=== PATIENT | female | born 1980 | race Caucasian/White ===

== ENCOUNTER 2017-05-31 07:06 | Day surgery (SDC) | payer BC, OTHER ==
[2017-05-31] MEDS: NS 1,000 ML IV (07:25)
[2017-05-31] MEDS ORDERED: PROPOFOL 200 MG/20 ML VIAL As Ordered (08:32)
[2017-05-31] MEDS ORDERED: LIDOCAINE 2% INJ 100 MG/5 ML SDV (FOR ANES.) As Ordered (08:32)
== END 2017-05-31 09:14 | disposition home or self-care (01) ==
LOC: M OPP 07:06
DX: K21.9 Gastro-esophageal reflux disease without esophagitis (principal); K29.70 Gastritis, unspecified, without bleeding; K29.80 Duodenitis without bleeding; R12 Heartburn; D64.9 Anemia, unspecified; G43.909 Migraine, unspecified, not intractable, without status migrainosus; R21 Rash and other nonspecific skin eruption; Z86.19 Personal history of other infectious and parasitic diseases; Z88.8 Allergy status to other drugs, medicaments and biological substances; Z91.02 Food additives allergy status; Z79.899 Other long term (current) drug therapy; Z80.3 Family history of malignant neoplasm of breast
CPT/HCPCS: 43239

== ENCOUNTER 2018-06-09 07:20 | Day surgery (SDC) | payer BC, OTHER ==
[~2018-06-09] VITALS: Ht 165.1 cm; Wt 79.4 kg
[~2018-06-09 07:20] MED LIST: ASHL1TAB PO; IBUP-1114 PO; LIDOCAINE 2% INJ 100 MG/5 ML SDV (FOR ANES.) As Ordered ONE; MAPA500T2 PO; NS 1,000 ML IV ONE; PANT40TA3 PO; PRENTAB55 PO; PROPOFOL 200 MG/20 ML VIAL As Ordered ONE
--- NOTE | 2018-06-09 08:33 | ROOR ---
Patient Name: Opal Blair Procedure Date: 06/09/2018 8:06 AM Date of : 1980 Age: 38 Room: [facility] Gender: Female Note Status: Finalized Procedure: Colonoscopy Indications: Follow-up of diverticulitis Providers: Cory Burnett MD Referring MD: Mary Ellen Gallardo NP Requesting Provider: Medicines: Monitored Anesthesia Care Complications: No immediate complications. Procedure: Pre-Anesthesia Assessment: - Prior to the procedure, a History and Physical was performed, and patient medications and allergies were reviewed. The patient is competent. The risks and benefits of the procedure and the sedation options and risks were discussed with the patient. All questions were answered and informed consent was obtained. Patient identification and proposed procedure were verified by the physician, the nurse and the anesthesiologist in the procedure room. Mental Status Examination: alert and oriented. Airway Examination: normal oropharyngeal airway and neck mobility. Respiratory Examination: clear to auscultation. CV Examination: normal. Prophylactic Antibiotics: The patient does not require prophylactic antibiotics. Prior Anticoagulants: The patient has taken no previous anticoagulant or antiplatelet agents. ASA Grade Assessment: II - A patient with mild systemic disease. After reviewing the risks and benefits, the patient was deemed in satisfactory condition to undergo the procedure. The anesthesia plan was to use monitored anesthesia care (MAC). Immediately prior to administration of medications, the patient was re-assessed for adequacy to receive sedatives. The heart rate, respiratory rate, oxygen saturations, blood pressure, adequacy of pulmonary ventilation, and response to care were monitored throughout the procedure. The physical status of the patient was re-assessed after the procedure. The Colonoscope was introduced through the anus and advanced to the terminal ileum, with identification of the appendiceal orifice and IC valve. The colonoscopy was performed without difficulty. The patient tolerated the procedure well. The quality of the bowel preparation was good. The terminal ileum, ileocecal valve, appendiceal orifice, and rectum were photographed. Scope insertion time was 3 minutes. Scope withdrawal time was 9 minutes. The total duration of the procedure was 12 minutes. Findings: The perianal exam findings include non-thrombosed external hemorrhoids. The terminal ileum appeared normal. A few small-mouthed diverticula were found in the sigmoid colon. Diffuse mild mucosal changes characterized by erythema and granularity were found in the sigmoid colon. Biopsies were taken with a cold forceps for histology. Verification of patient identification for the specimen was done by the physician and nurse using the patient's name, date and medical record number. Estimated blood loss was minimal. Non-bleeding external and internal hemorrhoids were found during retroflexion. The hemorrhoids were large. Impression: - Non-thrombosed external hemorrhoids found on perianal exam. - The examined portion of the ileum was normal. - Diverticulosis in the sigmoid colon. - Diffuse mild mucosal changes were found in the sigmoid colon secondary to colitis. Biopsied. - Non-bleeding external and internal hemorrhoids. Recommendation: - Patient has a contact number available for emergencies. The signs and symptoms of potential delayed complications were discussed with the patient. Return to normal activities tomorrow. Written discharge instructions were provided to the patient. - High fiber diet. - Continue present medications. - Preparation H ointment: Apply externally daily for 5 days. - Use fiber, for example Citrucel, Fibercon, Konsyl or Metamucil. - Await pathology results. - Repeat colonoscopy at age 48 for screening purposes. - Based on the biopsy results you will receive a phone call from GI clinic in 2-3 weeks to review the pathology results AND/OR your results will be faxed to your Primary care physician. - Return to primary care physician. Cory Burnett MD Cory Burnett MD 06/09/2018 8:32:42 AM This report has been signed electronically. Number of Addenda: 0 Note Initiated On: 06/09/2018 8:06 AM Estimated Blood Loss: Estimated blood loss was minimal.
[2018-06-09 09:01] VITALS: BP 128/72
== END 2018-06-09 09:02 | disposition home or self-care (01) ==
LOC: M OPP 07:20
PROVIDERS: ATTEND Internal Medicine Gastroenterology
DX: K64.4 Residual hemorrhoidal skin tags (principal); K64.8 Other hemorrhoids; K52.9 Noninfective gastroenteritis and colitis, unspecified; K57.32 Diverticulitis of large intestine without perforation or abscess without bleeding; K57.30 Diverticulosis of large intestine without perforation or abscess without bleeding; Z79.3 Long term (current) use of hormonal contraceptives; Z88.2 Allergy status to sulfonamides; Z88.8 Allergy status to other drugs, medicaments and biological substances; J30.89 Other allergic rhinitis; Z91.048 Other nonmedicinal substance allergy status; Z80.3 Family history of malignant neoplasm of breast; Z80.6 Family history of leukemia; Z80.8 Family history of malignant neoplasm of other organs or systems

== ENCOUNTER 2018-09-30 13:32 | Emergency (ER) | payer BC, OTHER ==
[~2018-09-30] VITALS: Ht 165.1 cm; Wt 79.3 kg
[~2018-09-30 13:32] MED LIST changes: -LIDOCAINE 2% INJ 100 MG/5 ML SDV (FOR ANES.) As Ordered ONE; -NS 1,000 ML IV ONE; -PROPOFOL 200 MG/20 ML VIAL As Ordered ONE
[2018-09-30 14:13] LABS: BASO % 0.3 % (0.0-1.0); EOS # 0.1 10^3/uL (0.0-0.50); EOS % 0.6 % (0.0-3.0); HEMATOCRIT 44.6 % (36.0-47.0); HEMOGLOBIN 15.5 g/dl (12.0-15.5); LYMPH # 1.5 10^3/uL (1.5-4.5); LYMPH % 10.5 % (24.0-44.0); MEAN CORPUSCULAR HEMOGLOBIN 32.1 pg (27.0-33.0); MEAN CORPUSCULAR HGB CONC 34.8 g/dl (32.0-36.5); MEAN CORPUSCULAR VOLUME 92.3 fl (80.0-96.0); MONO # 0.8 10^3/uL (0.0-0.8); MONO % 5.7 % (0.0-5.0); NEUTROPHILS % 82.4 % (36.0-66.0); PLATELET COUNT, AUTOMATED 256 10^3/uL (150-450); RED BLOOD COUNT 4.83 10^6/uL (4.00-5.40); WHITE BLOOD COUNT 14.5 10^3/uL (4.0-10.0)
[2018-09-30] MEDS ORDERED: MORPHINE 4 MG/ML 1ML VIAL/SYRINGE (J2270) IV ONE (14:45)
[2018-09-30] MEDS ORDERED: NS 1,000 ML IV ONE (14:45)
[2018-09-30 14:46] LABS: BILIRUBIN,DIRECT 0.2 MG/DL (0.0-0.2); BILIRUBIN,TOTAL 0.9 MG/DL (0.2-1.0); TOTAL PROTEIN 8.4 GM/DL (6.4-8.2)
--- NOTE | 2018-09-30 16:01 | REP ---
Right upper quadrant sonography: History: Right upper quadrant pain. Findings: Scanning through right upper quadrant of the abdomen demonstrates multiple mobile shadowing calculi in the gallbladder lumen. Common bile duct is normal measuring 0.2 cm in greatest diameter. Gallbladder wall is not thickened. No pericholecystic fluid is seen. No focal liver lesion is seen. There is no evidence of ascites or right renal abnormality. The right kidney measures 10.9 x 4.3 x 4.2 cm. No pancreatic abnormalities observed. Impression: Cholelithiasis. Otherwise negative right upper quadrant sonography. Electronically Signed by Miquel Granados MD 09/30/2018 03:52 P
[2018-09-30] MEDS ORDERED: NORC1TAB7 PO (16:48)
[2018-09-30 16:56] VITALS: BP 121/65
== END 2018-09-30 17:11 | disposition home or self-care (01) ==
LOC: M ED 13:32
DX: K80.50 Calculus of bile duct without cholangitis or cholecystitis without obstruction (principal); Z79.899 Other long term (current) drug therapy; Z88.8 Allergy status to other drugs, medicaments and biological substances; Z91.02 Food additives allergy status
CPT/HCPCS: 76705; 80047; 80076; 81001; 83690; 85025; 96361; 96374; 99284; J2270

== ENCOUNTER → 2018-10-03 | Outpatient (REF) | payer OTHER ==
[~2018-10-03] MED LIST changes: +NORC1TAB7 PO; +[UNRECOGNIZED DRUG - CODE] PO
[2018-10-04 09:14] LABS: H PYLORI QUALITATIVE IgG NEGATIVE (NEGATIVE)
== END ==
LOC: M LAB REF 16:48
PROVIDERS: ATTEND Nurse Practitioner Adult Health
DX: R10.9 Unspecified abdominal pain (principal)

== ENCOUNTER 2019-01-19 10:11 | Day surgery (SDC) | payer BC, OTHER ==
[~2019-01-19] VITALS: Ht 165.1 cm; Wt 82.6 kg
[~2019-01-19 10:11] MED LIST changes: +BUPIVACAINE/EPIN 0.25% 30 ML VIAL As Ordered ONE; +LR 1,000 ML IV ONE; +ceFAZolin SOD 1 GM in D5W MINI-BAG PLUS 50 ML IV ONE
[2019-01-19] MEDS ORDERED: LIDOCAINE 2% INJ 100 MG/5 ML SDV (FOR ANES.) As Ordered ONE (10:28)
[2019-01-19] MEDS ORDERED: PROPOFOL 200 MG/20 ML VIAL As Ordered ONE (10:28)
[2019-01-19] MEDS ORDERED: ROCURONIUM BROMIDE 50 MG/5 ML VIAL As Ordered ONE (10:28)
[2019-01-19] MEDS ORDERED: dexameTHASONE 4 MG/ML 1ML VIAL (J1100) As Ordered ONE (10:29)
[2019-01-19] MEDS ORDERED: ONDANSETRON 4MG/2ML VIAL (J2405) As Ordered ONE (10:29)
[2019-01-19] MEDS ORDERED: MIDAZOLAM INJ 2 MG/2 ML VIAL (J2250) As Ordered ONE (10:29)
[2019-01-19] MEDS ORDERED: fentaNYL 100 MCG/2 ML INJECTION (J3010) As Ordered ONE ×3 (10:29→13:29)
[2019-01-19] MEDS ORDERED: KETOROLAC 60 MG/2 ML VIAL (J1885) As Ordered ONE (10:30)
[2019-01-19] MEDS ORDERED: SUGAMMADEX SODIUM 500 MG/5 ML VIAL (BRIDION) As Ordered ONE (10:30)
[2019-01-19] MEDS ORDERED: BUPIVACAINE HCL 0.25% 10 ML VIAL As Ordered ONE (11:46)
[2019-01-19] MEDS ORDERED: BUPIVACAINE LIPOSOME/PF 1.3% 20ML VIAL (13.3MG/ML)(EXPAREL)(C9290 PER1MG) As Ordered ONE (11:46)
[2019-01-19] MEDS ORDERED: ACETAMINOPHEN 1000MG 100ML IV BTL (OFIRMEV) (J0131 PER 10MG) As Ordered ONE (12:49)
--- NOTE | 2019-01-19 13:29 | RO ---
DATE OF PROCEDURE: 01/19/2019 POSTOPERATIVE DIAGNOSIS: Umbilical hernia. POSTOPERATIVE DIAGNOSIS: Umbilical hernia. PROCEDURE: Laparoscopic robotic assisted umbilical hernia repair with mesh. SURGEON: Dr. Kunal Wong DUMB WAITER OPERATOR: Jeimy Verde (provided trocar placement, instrument exchange and trocar closure). ESTIMATED BLOOD LOSS: Minimal. FLUIDS: Crystalloid. ANESTHESIA: General endotracheal anesthesia/ DISPOSITION: The patient was taken to recovery room awake, alert, and hemodynamic stable. BRIEF OPERATIVE SUMMARY: The patient was brought to the operating room and was given general anesthesia. After adequate anesthesia and preoperative antibiotics were given the patient was prepped and draped in the usual sterile fashion. Next a left upper quadrant 8 mm incision was made with a skin knife. Blunt dissection was carried down to fascia. Veress needle placed into the abdominal cavity insufflated to 15 mm pressure. A dilated 8 mm trocar was placed at this time and under direct visualization an epigastric and lateral trocars were placed. The peritoneum at the end of the falciform ligament was taken down with monopolar cut scissors and blunt dissection was used to mobilize this peritoneum eventually down towards the umbilicus. The umbilicus had some incarcerated fat in it that was delivered into the preperitoneal space and transected at its base. The fascial defect could be nicely appreciated. I had some concern that there was some significant diastasis infraumbilically but did not appreciate this laparoscopically, but starting the closure I started below the umbilicus approximately 2 cm and using a running 0 Stratafix closed the fascial defect. The ProGrip mesh was cut to the appropriate size, placed in the preperitoneal space and pressed up into position. The peritoneum was closed over the top of this and next all trocars removed under direct visualization. The trocar sites were closed with 4-0 Vicryl. Steri-Strips and a dry sterile dressing was applied. The patient was awakened from anesthesia and brought to recovery room awake, alert, hemodynamically stable. Sponge and needle counts were correct times two.
[2019-01-19] MEDS ORDERED: oxyCODONE 5MG TAB As Ordered ONE (13:40)
[2019-01-19] MEDS: oxyCODONE 5MG TAB PO PRN ×2 (13:42→14:12)
[2019-01-19] MEDS ORDERED: fentaNYL 100 MCG/2 ML INJECTION (J3010) IV PRN (13:45)
[2019-01-19] MEDS ORDERED: LR 1,000 ML IV SCH ×2 (13:45→14:00)
[2019-01-19] MEDS ORDERED: ONDANSETRON 4MG/2ML VIAL (J2405) IV PRN ×2 (13:45→14:00)
[2019-01-19] MEDS ORDERED: NORCO, ANEXSIA 5/325MG TABLET (HYDROcodone/ACETAMINOPHEN) PO PRN (14:00)
[2019-01-19 16:00] VITALS: BP 139/86
== END 2019-01-19 16:05 | disposition home or self-care (01) ==
LOC: M SDC 10:11
PROVIDERS: ATTEND Surgery
DX: K42.9 Umbilical hernia without obstruction or gangrene (principal); D64.9 Anemia, unspecified; K21.9 Gastro-esophageal reflux disease without esophagitis; G43.909 Migraine, unspecified, not intractable, without status migrainosus; Z86.19 Personal history of other infectious and parasitic diseases; Z88.8 Allergy status to other drugs, medicaments and biological substances; Z91.048 Other nonmedicinal substance allergy status; Z79.899 Other long term (current) drug therapy; Z79.3 Long term (current) use of hormonal contraceptives
CPT/HCPCS: 49652; 81025; C1781; C9290; J0131; J0690; J1100; J1885; J2250; J2405; J3010

== ENCOUNTER → 2021-11-13 | Outpatient (CLI) | payer BC, OTHER ==
[~2021-11-13] MED LIST changes: -BUPIVACAINE/EPIN 0.25% 30 ML VIAL As Ordered ONE; -LR 1,000 ML IV ONE; +PANT40TA29 PO; -PANT40TA3 PO; -ceFAZolin SOD 1 GM in D5W MINI-BAG PLUS 50 ML IV ONE
== END ==
LOC: M RAD 12:28
PROVIDERS: ATTEND Physician Assistant Medical
DX: M77.32 Calcaneal spur, left foot (principal); S93.402A Sprain of unspecified ligament of left ankle, initial encounter; X58.XXXA Exposure to other specified factors, initial encounter; Y92.89 Other specified places as the place of occurrence of the external cause

== ENCOUNTER → 2022-06-15 | Outpatient (CLI) | payer BC, OTHER | LOC: M SOG 07:51 | PROVIDERS: ATTEND Physician Assistant | DX: M79.642 Pain in left hand (principal); M79.645 Pain in left finger(s) ==

== ENCOUNTER 2023-09-16 16:20 | Emergency (ER) | payer BC, OTHER ==
[~2023-09-16] VITALS: Ht 165.1 cm; Wt 100.7 kg
[2023-09-16 18:46] VITALS: BP 164/90; TEMP 97.6; O2SAT 99
== END 2023-09-16 18:59 | disposition home or self-care (01) ==
LOC: M ED 16:20
DX: S90.31XA Contusion of right foot, initial encounter (principal); W22.8XXA Striking against or struck by other objects, initial encounter; Y92.9 Unspecified place or not applicable; Y93.9 Activity, unspecified; Y99.9 Unspecified external cause status; E66.9 Obesity, unspecified; Z79.3 Long term (current) use of hormonal contraceptives; Z79.899 Other long term (current) drug therapy; Z88.8 Allergy status to other drugs, medicaments and biological substances; Z91.02 Food additives allergy status